=== PATIENT | male | born 1940 | race Caucasian/White ===

== ENCOUNTER 2016-10-14 05:47 | Emergency (ER) | payer OTHER ==
[~2016-10-14 05:47] MED LIST: AMBIEN5 MG PO; METFORMIN HCL500 MG PO; METOPROLOL TART25 MG PO; PRAVACHOL40 MG PO; ZESTRIL2.5 MG PO
--- NOTE | 2016-10-14 07:32 | DIAGNOSTIC IMAGING REPORT ---
PROCEDURE: CT CERVICAL SPINE W/O CONTRAST CLINICAL INDICATION: TRAUMA/INJURY TECHNIQUE: Noncontrast axial images with sagittal and coronal reformations. COMPARISON: There is no fracture. Moderate bilateral foraminal stenosis from C3-4 to see 71. FINDINGS: There is 2 mm C2-3 anterolisthesis and 2 mm C3-4 retrolisthesis. Severe degenerative changes with multilevel disc space narrowing and spur formation with moderate bilateral foraminal stenosis from C3-4 to C6-7. No spinal stenosis. Severe bilateral carotid bifurcation atherosclerosis. IMPRESSION: 1. No acute change 2. Severe multilevel degenerative changes 3. Results discussed with Dr. Santos All CT scans at this facility use dose modulation, iterative reconstruction, and/or weight-based dosing when appropriate to reduce radiation dose to as low as reasonably achievable.
--- NOTE | 2016-10-14 07:56 | DIAGNOSTIC IMAGING REPORT ---
PROCEDURE: CT HEAD WITHOUT CONTRAST INDICATION: TRAUMA/INJURY TECHNIQUE: Noncontrast axial images with sagittal and coronal reformations. COMPARISON: None. FINDINGS: Mild cortical atrophy. Ventricular system, and brain parenchyma are normal. No evidence of acute intracranial process. Visualized mastoids and sinuses are clear. IMPRESSION: 1. Negative non-enhanced head CT. 2. Findings discussed with chaparro Santos at 07:32 a.m.[facility] Time
--- NOTE | 2016-10-14 07:56 | DIAGNOSTIC IMAGING REPORT ---
PROCEDURE: CT HEAD WITHOUT CONTRAST INDICATION: TRAUMA/INJURY TECHNIQUE: Noncontrast axial images with sagittal and coronal reformations. COMPARISON: None. FINDINGS: Mild cortical atrophy. Ventricular system, and brain parenchyma are normal. No evidence of acute intracranial process. Visualized mastoids and sinuses are clear. IMPRESSION: 1. Negative non-enhanced head CT. 2. Findings discussed with chaparro Santos at 07:32 a.m.[facility] Time
--- NOTE | 2016-10-14 09:21 | ED CLINICAL REPORT ---
Clinical Report - Physicians/Mid Levels [facility] [address] [address] 10/14/2016 5:49 Patient: JARROD FRENCH Time Seen: 0555. Arrived- By ambulance. Historian- patient. HISTORY OF PRESENT ILLNESS Chief Complaint: FALL. Location of injuries- head and neck. The injury occurred just prior to arrival. Occurred at home. Fell. He experienced syncope. The patient complains of moderate pain. The patient sustained a blow to the head and complains of neck pain. No loss of consciousness or seizure. Not dazed. (amnesia of the event. Patient is not sure if he had lost consciousness.). REVIEW OF SYSTEMS All systems otherwise negative, except as recorded above. PAST HISTORY See nurses notes. Tetanus immunization status is up-to-date. SOCIAL HISTORY Never smoker. No alcohol use or drug use. No recent travel. Is a local resident. ADDITIONAL NOTES The nursing notes have been reviewed. PHYSICAL EXAM Vital Signs: 10/14/2016 05:53 BP: 121/70. HR: 88. RR: 18. O2 saturation: 97%. Temp: 98.1 F. Pain level now: 0/10. Blood pressure normal. Oxygen saturation normal. Head: Head non-tender. No swelling of head. No Mccord's sign or raccoon eyes. Eyes: Pupils equal, round and reactive to light. Pupillary exam: Right pupil 3mm, round and reactive to light directly and consensually and with accommodation. Left pupil: 3mm, round and reactive to light directly and consensually and with accommodation. EOM intact. Neck: Decrease in ROM. Pain in the neck upon movement. (ilateral lower paraspinal posterior muscle tenderness and spasm. No midline tenderness. No crepitus. No step-offs.). CVS: Heart sounds normal. Pulses normal. Respiratory: Breath sounds normal. Chest nontender. Abdomen: No visible injury. Soft and nontender. Bowel sounds normal. No mass. Back: No tenderness. ROM normal. Skin: Skin intact. Skin warm and dry. Normal skin color. Extremities: Normal inspection. Pelvis stable. Extremities atraumatic. Neuro: Keeley Coma Scale: 15- eyes open spontaneously (4); best verbal response- oriented x 3 (5); best motor response- obeys commands (6). Oriented X 3. No motor deficit. No sensory deficit. LABS, X-RAYS, AND EKG EKG: No acute process. No acute ischemia. Normal sinus rhythm. Occasional narrow-complex and atrial ectopic beats. Normal P waves. Normal IMANI. Normal QRS complex. Normal axis. Normal ST and T waves, QT and QTc. normal sinus with premature atrial complexes. The study has been interpreted contemporaneously. The study has been independently viewed by me. The EKG appears to be a good tracing. I agree with and confirm the computer reading of the EKG. CT C-Spine: (PROCEDURE: CT CERVICAL SPINE W/O CONTRAST CLINICAL INDICATION: TRAUMA/INJURY TECHNIQUE: Noncontrast axial images with sagittal and coronal reformations. COMPARISON: There is no fracture. Moderate bilateral foraminal stenosis from C3-4 to see 71. FINDINGS: There is 2 mm C2-3 anterolisthesis and 2 mm C3-4 retrolisthesis. Severe degenerative changes with multilevel disc space narrowing and spur formation with moderate bilateral foraminal stenosis from C3-4 to C6-7. No spinal stenosis. Severe bilateral carotid bifurcation atherosclerosis. IMPRESSION: 1. No acute change 2. Severe multilevel degenerative changes). The study was independently viewed by me and interpreted by the radiologist. The study was discussed with the radiologist (via phone and PACs). CT Head: (PROCEDURE: CT HEAD WITHOUT CONTRAST INDICATION: TRAUMA/INJURY TECHNIQUE: Noncontrast axial images with sagittal and coronal reformations. COMPARISON: None. FINDINGS: Mild cortical atrophy. Ventricular system, and brain parenchyma are normal. No evidence of acute intracranial process. Visualized mastoids and sinuses are clear. IMPRESSION: 1. Negative non-enhanced head CT.). The study was independently viewed by me and interpreted by the radiologist. The study was discussed with the radiologist (via phone and fax). Laboratory Tests: UA-Culture if indicated: (MARIKA: 10/14/2016 08:40) ( MsgRcvd 10/14/2016 09:05) Final results Test Result Flag Units (Reference) URINE COLOR YELLOW URINE APPEARANCE CLEAR URINE GLUCOSE TRACE (NEGATIVE) URINE BILIRUBIN NEGATIVE (NEGATIVE) URINE KETONE 1+ (NEGATIVE) URINE SPECIFIC GRAVITY 1.020 (1.010-1.030) URINE PH 6.0 (5.0-8.0) URINE PROTEIN NEGATIVE (NEGATIVE) URINE UROBILINOGEN 0.2 EU/dL (0.2-1.0) URINE NITRITE NEGATIVE (NEGATIVE) URINE BLOOD NEGATIVE (NEGATIVE) URINE LEUK ESTERASE NEGATIVE (NEGATIVE) URINE RBC RARE rbc/hpf (0-1) URINE WBC NONE SEEN wbc/hpf (0-1) URINE EPITHELIAL CELLS 1-3 EPI/hpf (0-5) URINE BACTERIA TRACE (<1+) (NONE SEEN) URINE COMMENT CULT NOT INDICATED 1-3 HYALINE CASTURINE CULTURES ARE SET-UP BASED ON THE FOLLOWING CRITERIA:POSITIVE NITRITEPOSITIVE LEUKOCYTE ESTERASEGREATER THAN 10 WHITE BLOOD CELLSMODERATE (2+) OR GREATER BACTERIA CBC w Diff: (MARIKA: 10/14/2016 06:21) ( [facility] 10/14/2016 06:29) Final results Test Result Flag Units (Reference) WHITE BLOOD COUNT 10.1 K/uL (4.5-11.5) RED BLOOD COUNT 3.28 L M/uL (4.50-5.90) HEMOGLOBIN 10.8 L gm/dL (13.5-17.5) HEMATOCRIT 32.3 L % (41.0-53.0) MEAN CELL VOLUME 99 fL (80-100) MEAN CORPUSCULAR HGB 33 pg (26-34) MEAN CORPUSCULAR HGB CONC 33 g/dL (31-37) RED CELL DISTRIBUTION WIDTH 13.2 % (11.6-14.8) PLATELET COUNT 215 K/uL (150-400) NEUTROPHIL % 79.8 H % (50-75) LYMPH % 11.7 L % (25-40) MONO % 7.6 % (3-14) EOSINOPHIL % 0.7 % (0-4) BASOPHIL % 0.2 % (0-2) PT with INR: (MARIKA: 10/14/2016 06:21) ( [facility] 10/14/2016 06:38) Final results Test Result Flag Units (Reference) INR 1.1 (0.8-1.2) Low Intensity Therapy: INR 1.5-2.0 PT range 18.5-23.1Mod.Intensity Therapy: INR 2.0-3.0 PT range 23.1-31.5High Intensity Therapy: INR 2.5-3.5 PT range 27.4-35.5High Intensity Therapy 2: INR 3.0-4.0 PT range 31.5-39.3 APTT 25 SECONDS (24-34) Troponin-I: (MARIKA: 10/14/2016 08:38) ( [facility]14[facility]:09) Final results Test Result Flag Units (Reference) TROPONIN I <0.05 ng/mL (0.00-1.5) TROPONIN REFERENCE RANGE:<0.1 NEGATIVE0.1-1.5 INDETERMINANT>1.5 POSITIVE CMP: (MARIKA: 10/14/2016 06:21) ( [facility] 10/14/2016 06:45) Final results Test Result Flag Units (Reference) GLUCOSE 177 H mg/dL (70-110) BUN 53 H mg/dL (7-18) CREATININE 1.6 H mg/dL (0.6-1.3) Estimated GFR 45.13 mL/min Estimated GFR- 54.70 mL/min Note: Persistent reduction over 3 months in eGFR<60 mL/min/1.73 m2 defines CKD. Patients with eGFR values>=60 mL/min/1.73 m2 may also have CKD if evidence ofpersistent proteinuria. Additional information may be foundat www.kidney.org. SODIUM 139 mmol/L (136-145) POTASSIUM 4.3 mmol/L (3.5-5.1) CHLORIDE 105 mmol/L (98-107) CARBON DIOXIDE 21 mmol/L (21-32) CALCIUM 8.5 mg/dL (8.5-10.1) TOTAL PROTEIN 5.7 L g/dL (6.4-8.2) ALBUMIN 3.0 L g/dL (3.3-5.0) BILIRUBIN, TOTAL 0.4 mg/dL (0.0-1.0) ALKALINE PHOSPHATASE 29 L U/L (46-116) AST (SGOT) 23 U/L (15-37) ALT (SGPT) 43 U/L (12-78) TROPONIN I <0.05 ng/mL (0.00-1.5) TROPONIN REFERENCE RANGE:<0.1 NEGATIVE0.1-1.5 INDETERMINANT>1.5 POSITIVE . PROGRESS AND PROCEDURES Course of Care: the patient is a 75-year-old male presenting for evaluation of fall. Unknown loss of consciousness. Patient will be evaluated for syncope as well as any significant injury to the head or neck. CT scan has been ordered. Pain medication is also been ordered. Workup is pending at this time. Patient's CT scan of the head and neck are noted for the findings above. EKGs also noted to have no acute abnormalities which would explain his syncopal event. Currently the patient's urinalysis is pending. Patient's second troponin will also need to be drawn at 8:21. patient with fall in bathroom. workup for possible causes negative. EKG unremarkable. Workup negative for acute findings. Mild anemia. Patient encouraged to take iron supplement. Patient pain controlled in the ED. Patient without other concerns. Ambulatory without assistance at time of discharge. Discussed with patient his work up in the ed including diagnosis, home care, follow up, and return precautions. All questions answered patient expressed understanding of these instructions an was agreeable to them. Disposition: Discharged. Condition: good. CLINICAL IMPRESSION 10/14/2016 08:27 BP: 101/66. HR: 86. RR: 22. O2 saturation: 99%. Blood pressure normal. Oxygen saturation normal. Acute cervical strain (acute). Acute anemia. Fall (acute). Minor closed head injury. Unknown whether a loss of consciousness occurred. INSTRUCTIONS (please take a iron supplement that can be found over the counter. follow package instructions.). Warnings: SEDATIVE MEDICATION: You were given sedative medication during your visit. Do not drive or operate dangerous machinery. Your Current Medications: CONTINUE TAKING THE FOLLOWING MEDICATIONS: MetFORMIN HCl Oral : 500 mg 2x a day. Metoprolol Tartrate Oral : 50 mg BID. Pravastatin Sodium Oral : 40 mg daily. Zolpidem Tartrate Oral : 10 mg at bedtime. Prescription Medications: Flexeril 10 mg: take 1 orally every 8 hours for 10 days as needed for muscle spasm or pain. Dispense twenty (20). No refills. Substitution is permissible. Follow-up: Return to the emergency department as needed. Follow up with your doctor in three days. Reason for referral: recheck today's concerns. Summary of care provided to patient via paper. Screening today revealed the patient's blood pressure to be in the normal range. The patient should follow up with a primary care provider for blood pressure management. Understanding of the discharge instructions verbalized by patient. (Electronically signed by Eze Santos Dr. 10/14/2016 21:08) Addenda for JARROD FRENCH VisitID: [id number] Date: 10/14/2016 10/14/2016 8:47 Note is been started by myself. Patient signed over to the oncoming doctor at the change of shift (Electronically signed by Eze Santos Dr. - 10/14/2016 8:47)
--- NOTE | 2016-10-14 09:21 | ED ORDER SUMMARY ---
..... Patient: JARROD FRENCH OrderSheet [facility] VisitID: [id number] [place] [address] 75y, M Registration Date/Time: 10/14/2016 ORDER SHEET Weight: 79.3 kg (stated) Allergies: No Known Drug Allergy GENERAL ORDERS: CT Head wo Cont Urgent (06:02 10/14/2016 Gina Estrada) (Ack 6:05 OSnell) (7:16 PWeiler ER Tech1) CT Cervical Spine wo Cont Urgent (06:02 10/14/2016 Gina Estrada) (Ack 6:05 OSnell) (7:16 PWeiler ER Tech1) CBC w Diff Urgent (06:02 10/14/2016 Gina Estrada) (Ack 6:05 Antionette) (6:24 JSanders R.N.) CMP Urgent (06:02 10/14/2016 Gina Estrada) (Ack 6:05 OSnell) (6:24 JSanders R.N.) PT with INR Urgent (06:02 10/14/2016 Gina Estrada) (Ack 6:05 OSnell) (6:24 JSanders R.N.) UA-Culture if indicated Urgent (06:02 10/14/2016 Gina Estrada) (Ack 6:04 Antionette) (9:06 Jolly) PTT Urgent (06:02 10/14/2016 Gina Estrada) (Ack 6:04 OSnell) (6:24 JSanders R.N.) Troponin-I Urgent (06:02 10/14/2016 Gina Estrada) (Ack 6:05 OSkvng) (6:24 JSanders R.N.) Regulatory Affairs Analyst (Continuous) (06:11 10/14/2016 MELINDAanders R.N. per protocol) (6:11 JSanders R.N.) EKG - ER Stat (06:46 10/14/2016 Gina Estrada) (Ack 6:52 FABnell) (7:12 OHernandez) Troponin-I (redraw at 08:21) Urgent (07:49 10/14/2016 Gina Estrada) (Ack 7:59 PWeiler ER Tech1) (8:52 ALawrence ER Tech1) MEDICATION ORDERS: IV FLUIDS: Morphine IV 4 mg (HIGH ALERT MEDICATION, NOW) (06:12 10/14/2016 Gina Estrada) (6:22 JSanders R.N.) Morphine IV 8 mg (HIGH ALERT MEDICATION, NOW) (07:55 10/14/2016 Gina Estrada) (8:19 LWhalen R.N.) IV NS : initial bolus 1000 mL (1000 mL/hr), then none - for X1 (NOW) (08:29 10/14/2016 Gina Estrada) (8:31 LWhalen R.N.) Ativan IV 1 mg (HIGH ALERT MEDICATION, NOW) (09:13 10/14/2016 Gina Estrada) (9:17 LWhalen R.N.) ORDER SHEET NOTES: [Electronically signed by Kathy Gallegos R.N. (17:58 10/14/2016)] [Electronically signed by Eze Santos Dr. (21:08 10/14/2016)] [Electronically locked/signed by Kathy Gallegos R.N. (17:58 10/14/2016)]
--- NOTE | 2016-10-14 09:21 | ED NURSING NOTES ---
Clinical Report - Nurses [facility] [address] [place] [address] 10/14/2016 5:49 Patient: JARROD FRENCH TRIAGE 05:53 10/14/16. BP: 121/70 (regular adult cuff) taken on the right arm. HR: 88. RR: 18. O2 saturation: 97% on room air. Temp: 98.1 F (oral). Pain level now: 0/10. --06:03 Marysol Hawthorne R.N. late entry - 05:53 10/14/16. --06:30 Marysol Hawthorne R.N. Triage time 05:Oct 14 2016. Acuity: LEVEL 3. Chief Complaint: FALL while standing (Patient was in bathroom and woke up in the bathtub, he said his neighbor called because she heard the loud noise of him falling). 06:03 10/14/16. SEPSIS SCREEN: Sepsis Screen. Negative (no infection suspected/documented). NATASHA COMA SCORE: Kaufman Coma Scale: 15- eyes open spontaneously (4); best verbal response- oriented x 4 (5); best motor response- obeys commands (6). --06:03 Marysol Hawthorne R.N. Weight: 79.3 kg stated. Height/Length: 71 inches Per Patient. BMI: 24.4. --06:01 Marysol Hawthorne R.N. Medications MetFORMIN HCl Oral 500 mg, 2x a day. Metoprolol Tartrate Oral 50 mg, BID. Pravastatin Sodium Oral 40 mg, daily. Zolpidem Tartrate Oral 10 mg, at bedtime. --05:56 Marysol Hawthorne R.N. Allergies No Known Drug Allergy. --05:56 Marysol Hawthorne R.N. History Arrived by EMS. Historian: patient. This occurred just prior to arrival. He has had neck pain. Treatment [employer]IP: None. PAST MEDICAL HX: Hypertension. SOCIAL HX: Smoker- current status unknown. Occasional alcohol use; consumes liquor weekly. 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 No infectious disease exposure. ABUSE ASSESSMENT: No report of abuse. SELF HARM ASSESSMENT: A self harm assessment was performed. The patient answered "no" to the question "Do you have thoughts of harming or killing yourself?" and "Have you recently had thoughts about harming or killing others?". --06:03 Marysol Hawthorne R.N. Treatment [employer]IP: EMS treatment [employer] verbally communicated. Finger stick glucose performed (215). BP: 102/70. --06:30 Marysol Hawthorne R.N. PROBLEMS: Hyperlipidemia. Insomnia. Hypotension. Diabetes Mellitus. --05:57 Marysol Hawthorne R.N. ADDITIONAL SURGERIES: Hernia Repair. --05:57 Marysol Hawthorne R.N. Interventions ID band on patient. To treatment room. --06:03 Marysol Hawthorne R.N. PHYSICAL ASSESSMENT 06:03 10/14/16. To room via stretcher. Patient gowned. GENERAL / NEURO / PSYCH: Alert. Oriented X 4. Appears in no acute distress. HEENT: Pupils equal, round and reactive to light. Head non-tender. RESPIRATORY: Respirations not labored. Chest nontender. Breath sounds within normal limits. CVS: Normal heart rate and rhythm. Pulses within normal limits. Capillary refill less than 2 seconds. GI / : Abdomen soft and nontender. EXTREMITIES: Extremities exhibit normal ROM. Neuro-vascular status intact to the extremity. SKIN: Skin intact. Skin is warm and dry. --06:04 Marysol Hawthorne R.N. NURSING PROGRESS NOTES 06:04 10/14/16. The plan of care for this patient has been created. Patient gowned. Reassurance given. Two patient identifiers checked. Call light placed in reach. Side rails up x 2. Bed placed in lowest position. Brakes of bed on. Patient ready for evaluation- chart flagged and ED physician notified. --06:04 Marysol Hawthorne R.N. 06:12 10/14/16. BP: 122/61 (regular adult cuff) taken on the left arm. HR: 95. RR: 18. O2 saturation: 95% on room air. Pain level now: 10/24. --06:12 Marysol Hawthorne R.N. 06:11 10/14/2016 Site #1 started prior to arrival by EMS via IV in the left forearm with an 22g angiocath, with aseptic technique and good blood return. --06:21 Marysol Hawthorne R.N. 06:12 10/14/16. --06:12 Marysol Hawthorne R.N. 06:22 10/14/2016 Morphine IVP 4 mg given over 2 minute(s) via site #1. Allergies verified, confirmed 5 rights and sedative warning given to the patient. IV patency established. IV site checked: no pain, redness, or swelling. IV flushed thoroughly pre- and post-medication administration. IVP given by RN. --06:22 Marysol Hawthorne R.N. 06:22 10/14/16. BP: 132/75 (regular adult cuff) taken on the left arm, while sitting. HR: 90. RR: 18. O2 saturation: 98% on room air. --06:23 Marysol Hawthorne R.N. Hemoccult test negative. repairer controller tester check passed. (POC test reference range: negative). --06:25 Marysol Hawthorne R.N. Cardiac rhythm: normal sinus rhythm. --06:26 Marysol Hawthorne R.N. 06:32 10/14/16. ( Patient given blanket, lights dimmed for patient comfort). --06:32 Marysol Hawthorne R.N. 06:40 10/14/16. BP: 100/57. HR: 88. RR: 20. O2 saturation: 97% on room air. Pain level now: 7/10. Additional comments: in neck. --06:41 Marysol Hawthorne R.N. 06:41 10/14/16. --06:41 Marysol Hawthorne R.N. Patient transported to CT by stretcher with tech. (06:46 Oct 14 2016). --06:47 Marysol Hawthorne R.N. Patient returned from radiology by stretcher with tech. (07:10 Oct 14 2016). --07:10 Marysol Hawthorne R.N. EKG time: (0708). EKG was ordered, performed by a tech and shown to the ED physician. --07:13 Missy Cali Care transferred and report given (Kathy, RN). --07:18 Marysol Hawthorne R.N. 08:19 10/14/2016 Morphine IVP 8 mg given over 4 minute(s) via site #1. Allergies verified, confirmed 5 rights and sedative warning given to the patient. IV patency established. IV site checked: no pain, redness, or swelling. IV flushed thoroughly pre- and post-medication administration. --08:19 Kathy Gallegos R.N. 08:27 10/14/16. BP: 101/66. HR: 86. RR: 22. O2 saturation: 99%. Pain level now 10/24. --08:28 Kathy Gallegos R.N. 08:31 10/14/2016 Started bag #1 1000 mL IV Fluids IV NS (Saline); at 1000 mL/hr over 1 hour(s) via site #1 via IV pump. Allergies verified and confirmed 5 rights. IV patency established. IV site checked: no pain, redness, or swelling. IV flushed thoroughly pre- and post-medication administration. --08:31 Kathy Gallegos R.N. 09:17 10/14/2016 Ativan (LORazepam) IVP 1 mg given over 2 minute(s) via site #1. Allergies verified, confirmed 5 rights and sedative warning given to the patient. IV patency established. IV site checked: no pain, redness, or swelling. IV flushed thoroughly pre- and post-medication administration. --09:17 Kathy Gallegos R.N. 09:30 10/14/2016 IV Fluids IV NS Discontinued: bag #1. Total amount infused: 1000 mL. IV patency established. IV site checked: no pain, redness, or swelling. IV flushed thoroughly. --17:57 Kathy Gallegos R.N. DISPOSITION / DISCHARGE Departure time: :Oct 14 2016. Condition at departure: improved. No learning barriers present. Discharge instructions provided and reviewed with the patient. Reviewed warnings. Reviewed medication(s). Treatments reviewed. Reviewed referrals. Verbalized understanding. Written instructions provided in [place]. The patient was discharged home and accompanied by family. He left the Emergency Department ambulatory and via private vehicle. Family member driving. --09:59 Kathy Gallegos R.N. 09:57 10/14/16. BP: 143/84. HR: 87. RR: 18. O2 saturation: 98%. Temp: 98.4 F. Pain level now 5/10. --09:59 Kathy Gallegos R.N. 09:34 10/14/2016 Site #1 removed upon discharge. Catheter intact. Pressure dressing applied. --09:59 Kathy Gallegos R.N. Locked/Released at 10/14/2016 17:58 by Kathy Gallegos R.N.
--- NOTE | 2016-10-14 09:21 | ED ORDER SUMMARY ---
..... Patient: JARROD FRENCH OrderSheet [facility] VisitID: [id number] [place] [address] 75y, M Registration Date/Time: 10/14/2016 ORDER SHEET Weight: 79.3 kg (stated) Allergies: No Known Drug Allergy GENERAL ORDERS: CT Head wo Cont Urgent (06:02 10/14/2016 Gina Estrada) (Ack 6:05 OSnell) (7:16 PWeiler ER Tech1) CT Cervical Spine wo Cont Urgent (06:02 10/14/2016 Gina Estrada) (Ack 6:05 OSnell) (7:16 PWeiler ER Tech1) CBC w Diff Urgent (06:02 10/14/2016 Gina Estrada) (Ack 6:05 Antionette) (6:24 JSanders R.N.) CMP Urgent (06:02 10/14/2016 Gina Estrada) (Ack 6:05 OSnell) (6:24 JSanders R.N.) PT with INR Urgent (06:02 10/14/2016 Gina Estrada) (Ack 6:05 OSnell) (6:24 JSanders R.N.) UA-Culture if indicated Urgent (06:02 10/14/2016 Gina Estrada) (Ack 6:04 Antionette) (9:06 Jolly) PTT Urgent (06:02 10/14/2016 Gina Estrada) (Ack 6:04 OSnell) (6:24 JSanders R.N.) Troponin-I Urgent (06:02 10/14/2016 Gina Estrada) (Ack 6:05 OSkvng) (6:24 JSanders R.N.) Finishing Powder Press Operator (Continuous) (06:11 10/14/2016 MELINDAanders R.N. per protocol) (6:11 JSanders R.N.) EKG - ER Stat (06:46 10/14/2016 Gina Estrada) (Ack 6:52 FABnell) (7:12 OHernandez) Troponin-I (redraw at 08:21) Urgent (07:49 10/14/2016 Gina Estrada) (Ack 7:59 PWeiler ER Tech1) (8:52 ALawrence ER Tech1) MEDICATION ORDERS: IV FLUIDS: Morphine IV 4 mg (HIGH ALERT MEDICATION, NOW) (06:12 10/14/2016 Gina Estrada) (6:22 JSanders R.N.) Morphine IV 8 mg (HIGH ALERT MEDICATION, NOW) (07:55 10/14/2016 Gina Estrada) (8:19 LWhalen R.N.) IV NS : initial bolus 1000 mL (1000 mL/hr), then none - for X1 (NOW) (08:29 10/14/2016 Gina Estrada) (8:31 LWhalen R.N.) Ativan IV 1 mg (HIGH ALERT MEDICATION, NOW) (09:13 10/14/2016 Gina Estrada) (9:17 LWhalen R.N.) ORDER SHEET NOTES: [Electronically signed by Kathy Gallegos R.N. (17:58 10/14/2016)] [Electronically signed by Eze Santos Dr. (21:08 10/14/2016)] [Electronically locked/signed by Kathy Gallegos R.N. (17:58 10/14/2016)]
--- NOTE | 2016-10-14 09:21 | ED NURSING NOTES ---
Clinical Report - Nurses [facility] [address] [place] [address] 10/14/2016 5:49 Patient: JARROD FRENCH TRIAGE 05:53 10/14/16. BP: 121/70 (regular adult cuff) taken on the right arm. HR: 88. RR: 18. O2 saturation: 97% on room air. Temp: 98.1 F (oral). Pain level now: 0/10. --06:03 Marysol Hawthorne R.N. late entry - 05:53 10/14/16. --06:30 Marysol Hawthorne R.N. Triage time 05:Oct 14 2016. Acuity: LEVEL 3. Chief Complaint: FALL while standing (Patient was in bathroom and woke up in the bathtub, he said his neighbor called because she heard the loud noise of him falling). 06:03 10/14/16. SEPSIS SCREEN: Sepsis Screen. Negative (no infection suspected/documented). NATASHA COMA SCORE: [place] Coma Scale: 15- eyes open spontaneously (4); best verbal response- oriented x 4 (5); best motor response- obeys commands (6). --06:03 Marysol Hawthorne R.N. Weight: 79.3 kg stated. Height/Length: 71 inches Per Patient. BMI: 24.4. --06:01 Marysol Hawthorne R.N. Medications MetFORMIN HCl Oral 500 mg, 2x a day. Metoprolol Tartrate Oral 50 mg, BID. Pravastatin Sodium Oral 40 mg, daily. Zolpidem Tartrate Oral 10 mg, at bedtime. --05:56 Marysol Hawthorne R.N. Allergies No Known Drug Allergy. --05:56 Marysol Hawthorne R.N. History Arrived by EMS. Historian: patient. This occurred just prior to arrival. He has had neck pain. 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 PAST MEDICAL HX: Hypertension. SOCIAL HX: Smoker- current status unknown. Occasional alcohol use; consumes liquor weekly. 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 No infectious disease exposure. ABUSE ASSESSMENT: No report of abuse. SELF HARM ASSESSMENT: A self harm assessment was performed. The patient answered "no" to the question "Do you have thoughts of harming or killing yourself?" and "Have you recently had thoughts about harming or killing others?". --06:03 Marysol Hawthorne R.N. 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 Finger stick glucose performed (215). BP: 102/70. --06:30 Marysol Hawthorne R.N. PROBLEMS: Hyperlipidemia. Insomnia. Hypotension. Diabetes Mellitus. --05:57 Marysol Hawthorne R.N. ADDITIONAL SURGERIES: Hernia Repair. --05:57 Marysol Hawthorne R.N. Interventions ID band on patient. To treatment room. --06:03 Marysol Hawthorne R.N. PHYSICAL ASSESSMENT 06:03 10/14/16. To room via stretcher. Patient gowned. GENERAL / NEURO / PSYCH: Alert. Oriented X 4. Appears in no acute distress. HEENT: Pupils equal, round and reactive to light. Head non-tender. RESPIRATORY: Respirations not labored. Chest nontender. Breath sounds within normal limits. CVS: Normal heart rate and rhythm. Pulses within normal limits. Capillary refill less than 2 seconds. GI / : Abdomen soft and nontender. EXTREMITIES: Extremities exhibit normal ROM. Neuro-vascular status intact to the extremity. SKIN: Skin intact. Skin is warm and dry. --06:04 Marysol Hawthorne R.N. NURSING PROGRESS NOTES 06:04 10/14/16. The plan of care for this patient has been created. Patient gowned. Reassurance given. Two patient identifiers checked. Call light placed in reach. Side rails up x 2. Bed placed in lowest position. Brakes of bed on. Patient ready for evaluation- chart flagged and ED physician notified. --06:04 Marysol Hawthorne R.N. 06:12 10/14/16. BP: 122/61 (regular adult cuff) taken on the left arm. HR: 95. RR: 18. O2 saturation: 95% on room air. Pain level now: 10/24. --06:12 Marysol Hawthorne R.N. 06:11 10/14/2016 Site #1 started prior to arrival by EMS via IV in the left forearm with an 22g angiocath, with aseptic technique and good blood return. --06:21 Marysol Hawthorne R.N. 06:12 10/14/16. --06:12 Marysol Hawthorne R.N. 06:22 10/14/2016 Morphine IVP 4 mg given over 2 minute(s) via site #1. Allergies verified, confirmed 5 rights and sedative warning given to the patient. IV patency established. IV site checked: no pain, redness, or swelling. IV flushed thoroughly pre- and post-medication administration. IVP given by RN. --06:22 Marysol Hawthorne R.N. 06:22 10/14/16. BP: 132/75 (regular adult cuff) taken on the left arm, while sitting. HR: 90. RR: 18. O2 saturation: 98% on room air. --06:23 Marysol Hawthorne R.N. Hemoccult test negative. pressure control supervisor check passed. (POC test reference range: negative). --06:25 Marysol Hawthorne R.N. Cardiac rhythm: normal sinus rhythm. --06:26 Marysol Hawthorne R.N. 06:32 10/14/16. ( Patient given blanket, lights dimmed for patient comfort). --06:32 Marysol Hawthorne R.N. 06:40 10/14/16. BP: 100/57. HR: 88. RR: 20. O2 saturation: 97% on room air. Pain level now: 7/10. Additional comments: in neck. --06:41 Marysol Hawthorne R.N. 06:41 10/14/16. --06:41 Marysol Hawthorne R.N. Patient transported to CT by stretcher with tech. (06:46 Oct 14 2016). --06:47 Marysol Hawthorne R.N. Patient returned from radiology by stretcher with tech. (07:10 Oct 14 2016). --07:10 Marysol Hawthorne R.N. EKG time: (0708). EKG was ordered, performed by a tech and shown to the ED physician. --07:13 Missy Cali Care transferred and report given (Kathy, RN). --07:18 Marysol Hawthorne R.N. 08:19 10/14/2016 Morphine IVP 8 mg given over 4 minute(s) via site #1. Allergies verified, confirmed 5 rights and sedative warning given to the patient. IV patency established. IV site checked: no pain, redness, or swelling. IV flushed thoroughly pre- and post-medication administration. --08:19 Kathy Gallegos R.N. 08:27 10/14/16. BP: 101/66. HR: 86. RR: 22. O2 saturation: 99%. Pain level now 10/24. --08:28 Kathy Gallegos R.N. 08:31 10/14/2016 Started bag #1 1000 mL IV Fluids IV NS (Saline); at 1000 mL/hr over 1 hour(s) via site #1 via IV pump. Allergies verified and confirmed 5 rights. IV patency established. IV site checked: no pain, redness, or swelling. IV flushed thoroughly pre- and post-medication administration. --08:31 Kathy Gallegos R.N. 09:17 10/14/2016 Ativan (LORazepam) IVP 1 mg given over 2 minute(s) via site #1. Allergies verified, confirmed 5 rights and sedative warning given to the patient. IV patency established. IV site checked: no pain, redness, or swelling. IV flushed thoroughly pre- and post-medication administration. --09:17 Kathy Gallegos R.N. 09:30 10/14/2016 IV Fluids IV NS Discontinued: bag #1. Total amount infused: 1000 mL. IV patency established. IV site checked: no pain, redness, or swelling. IV flushed thoroughly. --17:57 Kathy Gallegos R.N. DISPOSITION / DISCHARGE Departure time: :Oct 14 2016. Condition at departure: improved. No learning barriers present. Discharge instructions provided and reviewed with the patient. Reviewed warnings. Reviewed medication(s). Treatments reviewed. Reviewed referrals. Verbalized understanding. Written instructions provided in [place]. The patient was discharged home and accompanied by family. He left the Emergency Department ambulatory and via private vehicle. Family member driving. --09:59 Kathy Gallegos R.N. 09:57 10/14/16. BP: 143/84. HR: 87. RR: 18. O2 saturation: 98%. Temp: 98.4 F. Pain level now 5/10. --09:59 Kathy Gallegos R.N. 09:34 10/14/2016 Site #1 removed upon discharge. Catheter intact. Pressure dressing applied. --09:59 Kathy Gallegos R.N. Locked/Released at 10/14/2016 17:58 by Kathy Gallegos R.N.
--- NOTE | 2016-10-14 21:09 | ED MAR SUMMARY ---
..... Medication Administration [facility] [address] [place] [address] Patient: JARROD FRENCH Visit ID: [id number] 75y, M Weight: 79.3 kg Height/Length: 71 in BMI: 24.4 ALLERGIES: No Known Drug Allergy Given 06:22 10/14/2016 Marysol Hawthorne R.N. Medication Administered: MORPHINE [IVP], Dose: 4 mg IVP over 2 minute(s), Site: #1 left forearm. Medication Ordered: Morphine IV 4 mg (HIGH ALERT MEDICATION, NOW). Given 08:19 10/14/2016 Kathy Gallegos R.N. Medication Administered: MORPHINE [IVP], Dose: 8 mg IVP over 4 minute(s), Site: #1 left forearm. Medication Ordered: Morphine IV 8 mg (HIGH ALERT MEDICATION, NOW). Start 08:31 10/14/2016 Kathy Gallegos R.N., Stop 09:30 10/14/2016 Kathy Gallegos R.N. Medication Administered: IV NS (SALINE), Dose: IV Fluids over 1 hour(s), Rate: 1000 mL/hr, Dispensed: 1000 mL bag, Site: #1 left forearm. Medication Ordered: IV NS : initial bolus 1000 mL (1000 mL/hr), then none - for X1 (NOW). Given 09:17 10/14/2016 Kathy Gallegos R.N. Medication Administered: ATIVAN [IVP] (LORAZEPAM), Dose: 1 mg IVP over 2 minute(s), Site: #1 left forearm. Medication Ordered: Ativan IV 1 mg (HIGH ALERT MEDICATION, NOW).
--- NOTE | 2016-10-14 21:09 | ED MED RECONCILIATION SUMMARY ---
Patient: JARROD FRENCH Medication Reconciliation Report [facility] VisitID: [id number] [address] [place] [address] 75y, M Registration Date/Time: 10/14/2016 Weight: 79.3 kg Height/Length: 71 in. BMI: 24.4 ALLERGIES: No Known Drug Allergy The patient's Home Medications are listed below: CONTINUE TAKING THE FOLLOWING MEDICATIONS: MetFORMIN HCl Oral 500 mg, 2x a day Metoprolol Tartrate Oral 50 mg, BID Pravastatin Sodium Oral 40 mg, daily Zolpidem Tartrate Oral 10 mg, at bedtime The source(s) of the original Home Medication information: Not obtained. The following Medications were given to the patient in the Emergency Department: Morphine [IVP] IVP 4 mg, administered: 10/14/2016 6:22:00 AM Morphine [IVP] IVP 8 mg, administered: 10/14/2016 8:19:00 AM IV NS IV Fluids bolus 0, then 1000 mL/hr, administered: 10/14/2016 8:31:00 AM Ativan [IVP] IVP 1 mg, administered: 10/14/2016 9:17:00 AM The following Medications were prescribed to the patient: Flexeril 10 mg: take 1 orally every 8 hours for 10 days as needed for muscle spasm or pain. Dispense twenty (20). No refills. Substitution is permissible. -- Eze Santos Dr.
--- NOTE | 2016-10-14 21:09 | ED MED RECONCILIATION SUMMARY ---
Patient: JARROD FRENCH Medication Reconciliation Report [facility] VisitID: [id number] [address] [place] [address] 75y, M Registration Date/Time: 10/14/2016 Weight: 79.3 kg Height/Length: 71 in. BMI: 24.4 ALLERGIES: No Known Drug Allergy The patient's Home Medications are listed below: CONTINUE TAKING THE FOLLOWING MEDICATIONS: MetFORMIN HCl Oral 500 mg, 2x a day Metoprolol Tartrate Oral 50 mg, BID Pravastatin Sodium Oral 40 mg, daily Zolpidem Tartrate Oral 10 mg, at bedtime The source(s) of the original Home Medication information: Not obtained. The following Medications were given to the patient in the Emergency Department: Morphine [IVP] IVP 4 mg, administered: 10/14/2016 6:22:00 AM Morphine [IVP] IVP 8 mg, administered: 10/14/2016 8:19:00 AM IV NS IV Fluids bolus 0, then 1000 mL/hr, administered: 10/14/2016 8:31:00 AM Ativan [IVP] IVP 1 mg, administered: 10/14/2016 9:17:00 AM The following Medications were prescribed to the patient: Flexeril 10 mg: take 1 orally every 8 hours for 10 days as needed for muscle spasm or pain. Dispense twenty (20). No refills. Substitution is permissible. -- Eze Santos Dr.
--- NOTE | 2016-10-14 21:09 | ED DISCHARGE INSTRUCTIONS ---
Patient: JARROD FRENCH General Instructions [facility] VisitID: [id number] [place] [address] 75y, M Registration Date/Time: 10/14/2016 10/14/2016 08:27 BP: 101/66. HR: 86. RR: 22. O2 saturation: 99%. Blood pressure normal. Oxygen saturation normal. Acute cervical strain (acute). Acute anemia. Fall (acute). Minor closed head injury. Unknown whether a loss of consciousness occurred. INSTRUCTIONS (please take a iron supplement that can be found over the counter. follow package instructions.). Warnings: SEDATIVE MEDICATION: You were given sedative medication during your visit. Do not drive or operate dangerous machinery. Your Current Medications: CONTINUE TAKING THE FOLLOWING MEDICATIONS: MetFORMIN HCl Oral : 500 mg 2x a day. Metoprolol Tartrate Oral : 50 mg BID. Pravastatin Sodium Oral : 40 mg daily. Zolpidem Tartrate Oral : 10 mg at bedtime. Prescription Medications: Flexeril 10 mg: take 1 orally every 8 hours for 10 days as needed for muscle spasm or pain. Dispense twenty (20). No refills. Substitution is permissible. Follow-up: Return to the emergency department as needed. Follow up with your doctor in three days. Reason for referral: recheck today's concerns. Summary of care provided to patient via paper. Screening today revealed the patient's blood pressure to be in the normal range. The patient should follow up with a primary care provider for blood pressure management. Understanding of the discharge instructions verbalized by patient. ADDITIONAL INFORMATION Fall, Uncertain Cause You have had a fall today. but the cause of your fall is not certain. Falls can occur due to slipping, tripping or losing your balance. A fall can also occur from a fainting spell or seizure. Because the cause of your fall today is not certain, it is possible that a fainting spell or seizure was the cause. This means that it could happen again, without warning. If you fall again, without a cause, then you should return to this facility promptly to have further tests. Otherwise, follow up with your doctor as explained below. Home Care: 1) Rest today and resume your normal activities as soon as you are feeling back to normal. It is best to remain with someone who can check on you for the next 24 hours to watch for another episode of falling. 2) If you were injured during the fall, follow the advice from your doctor regarding care of your injury. 3) If you become light-headed or dizzy, lie down immediately or sit and lean forward with your head down. 4) As a precaution, do not drive a car or operate dangerous equipment, do not take a bath alone (use a shower instead) and do not swim alone until you see your doctor. A condition causing fainting or seizures must be ruled out before resuming these activities. 5)You may use acetaminophen (Tylenol) or ibuprofen (Motrin, Advil) to control pain, unless another pain medicine was prescribed. [ NOTE : If you have chronic liver or kidney disease or ever had a stomach ulcer or GI bleeding, talk with your doctor before using these medicines.] 6) Keep your appointments for any further testing that may have been scheduled for you. Follow Up: Unless, given other advice, call your doctor on the next office day to advise of your fall and to schedule an appointment. Get Prompt Medical Attention if any of the following occur: -- Another unexplained fall -- Dizziness, fainting or seizure -- Severe headache -- Chest pain or shortness of breath -- Palpitations (very rapid or very slow or irregular heart beat) -- Blood in vomit, stools (black or red color) -- Weakness of an arm or leg or one side of the face -- Difficulty with speech or vision Neck Sprain Or Strain A sudden force that causes turning or bending of the neck (such as in a car accident) can stretch or tear muscles (strain) and ligaments (sprain) and cause neck pain. Sometimes neck pain occurs after a simple awkward movement. In either case, muscle spasm is commonly present and contributes to the pain. Unless you had a forceful physical injury (for example, a car accident or fall), X-rays are usually not ordered for the initial evaluation of neck pain. If pain continues and dose not respond to medical treatment, X-rays and other tests may be performed at a later time. Home care The following guidelines will help you care for your injury at home: You may feel more soreness and spasm the first few days after the injury. Reduce your activity level until symptoms begin to improve. When lying down, use a comfortable pillow that supports the head and keeps the spine in a neutral position. The position of the head should not be tilted forward or backward. Use ice packs (ice in a plastic bag, wrapped in a towel) to treat acute pain. Apply for 20 minutes every 24 hours during the first two days. Then, begin local heat (hot shower, hot bath or heating pad) andmassageto reduce muscle spasm. Some patients feel best alternating hot and cold treatments, or just staying with one method only. Do what feels the best to you and gives the most relief. You may use acetaminophen or ibuprofen to control pain, unless another pain medicine was prescribed.If you have chronic liver or kidney disease or ever had a stomach ulcer or GI bleeding, talk with your doctor before using these medicines. Follow-up care Follow up with your physician or this facility if your symptoms do not show signs of improvement. Physical therapy may be needed. If you had X-rays today, they didnt show any broken bones, breaks, or fractures. Sometimes fractures dont show up on the first X-ray. Bruises and sprains can sometimes hurt as much as a fracture. These injuries can take time to heal completely. If your symptoms dont improve or they get worse, talk with your doctor. You may need a repeat X-ray. When to seek medical care Get prompt medical attention if any of the following occur: Pain becomes worse or spreads into your arms Weakness or numbness in one or both arms Anemia [Type Not Specified, Adult] Red blood cells carry oxygen to the tissues of the body. Anemia is a condition where the size or number of red blood cells in the body is reduced. Iron is needed to make red blood cells. The most common cause of anemia is iron deficiency. This may be due to: i) Blood loss (heavy menstrual periods or bleeding from the stomach or intestines); or, ii) Not eating enough iron-containing foods. Other causes of anemia include certain vitamin deficiencies, chronic kidney disease or certain other chronic illnesses. Anemia causes a feeling of being tired and run down. When anemia becomes severe, the skin becomes pale and there is shortness of breath with exertion. Headaches, dizziness, leg cramps with exertion, drowsiness and fatigue are other common symptoms. Home Care: If you are having symptoms of anemia listed above: -- Do not overexert yourself. -- Talk to your doctor before flying on an airplane or traveling to high altitudes. Follow Up with your doctor as advised by our staff. Additional blood testing may be required to determine the exact cause of your anemia. If testing was done on this visit, it may take several days to get all of the results. You may call this facility or follow up with your own doctor to get the results. Get Prompt Medical Attention if any of the following occur: -- Shortness of breath or chest pain -- Worsening of dizziness, fainting -- Vomiting blood or passing red or black-colored stool Concussion (No Wake-Up) A concussion happens when you hit your head with enough force to shake up the brain. This may cause you to lose consciousness be "knocked out" - but not always. Depending on how hard you hit your head, it will take from a few hours up to a few days to get better. Sometimes symptoms may last a few months or longer. This is called post-concussion syndrome. At first, you may have a headache, nausea, vomiting, or dizziness. You may also have problems concentrating or remembering things. This is normal. Symptoms should get better as the hours and days go by. Symptoms that get worse could be a sign of a more serious injury. This might be a bruise or bleeding in the brain. Thats why its important to watch for the warning signs listed below. Home care Follow these tips to help care for yourself at home: During the next day (24 hours) someone must stay with you to check for the signs below. If your face or scalp swells, apply an ice pack for 20 minutes every 1 to 2 hours. Do this until the swelling starts to go down. You can make an ice pack by putting ice cubes in a plastic bag and wrapping the bag in a towel. for 20 minutes every 1-2 hours until the swelling starts to go down. You may use acetaminophen to control pain, unless another pain medicine was prescribed. If you have chronic liver or kidney disease, talk with your doctor before using these medicines. Also talk with your doctor if you ever had a stomach ulcer or GI bleeding. For the next 24 hours: Dont drink alcohol or take sedatives or medicines that make you sleepy. Dont drive or operate machinery. Avoid doing anything strenuous. Dont lift or strain. Dont return to sports or any activity that could cause you to hit your head until all symptoms are gone and you have been cleared by your doctor. A second head injury before fully recovering from the first one can lead to serious brain injury. Follow-up care Follow up with your doctor in 1 week, or as directed. Note: A radiologist will review any X-rays or CT scans that were taken. You will be told of any new findings that may affect your care. When to seek medical care Get prompt medical attention if any of these occur: Repeated vomiting Headache or dizziness that is severe or gets worse Unusual drowsiness, or unable to wake up as usual Confusion or change in behavior or speech, or memory loss Blurred vision Convulsion (seizure) Swelling on the scalp or face that gets worse Redness, warmth, or pus from the swollen area Fluid draining from or bleeding from the nose or ears Cyclobenzaprine Hydrochloride Oral tablet What is this medicine? CYCLOBENZAPRINE (sye robertolaura ALEJANDRO perera preen) is a muscle relaxer. It is used to treat muscle pain, spasms, and stiffness. How should I use this medicine? Take this medicine by mouth with a glass of water. Follow the directions on the prescription label. If this medicine upsets your stomach, take it with food or milk. Take your medicine at regular intervals. Do not take it more often than directed. Talk to your substitute bus driver regarding the use of this medicine in children. Special care may be needed. What side effects may I notice from receiving this medicine? Side effects that you should report to your doctor or health behavioral health care manager as soon as possible: allergic reactions like skin rash, itching or hives, swelling of the face, lips, or tongue chest pain fast heartbeat hallucinations seizures vomiting Side effects that usually do not require medical attention (report to your doctor or health behavioral health care manager if they continue or are bothersome): headache What may interact with this medicine? Do not take this medicine with any of the following medications: cisapride droperidol flecainide grepafloxacin halofantrine levomethadyl MAOIs like Carbex, Eldepryl, Marplan, Nardil, and Parnate nilotinib pimozide probucol sertindole This medicine may also interact with the following medications: abarelix alcohol contrast dyes dolasetron guanethidine medicines for cancer medicines for depression, anxiety, or psychotic disturbances medicines to treat an irregular heartbeat medicines used for sleep or numbness during surgery or procedure methadone octreotide ondansetron palonosetron phenothiazines like chlorpromazine, mesoridazine, prochlorperazine, thioridazine some medicines for infection like alfuzosin, chloroquine, clarithromycin, levofloxacin, mefloquine, pentamidine, troleandomycin tramadol vardenafil What if I miss a dose? If you miss a dose, take it as soon as you can. If it is almost time for your next dose, take only that dose. Do not take double or extra doses. Where should I keep my medicine? Keep out of the reach of children. Store at room temperature between 15 and 30 degrees C (59 and 86 degrees F). Keep container tightly closed. Throw away any unused medicine after the expiration date. What should I tell my health care provider before I take this medicine? They need to know if you have any of these conditions: heart disease, irregular heartbeat, or previous heart attack liver disease thyroid problem an unusual or allergic reaction to cyclobenzaprine, tricyclic antidepressants, lactose, other medicines, foods, dyes, or preservatives or trying to get breast-feeding What should I watch for while using this medicine? Check with your doctor or health behavioral health care manager if your condition does not improve within 1 to 3 weeks. You may get drowsy or dizzy when you first start taking the medicine or change doses. Do not drive, use machinery, or do anything that may be dangerous until you know how the medicine affects you. Stand or sit up slowly. Your mouth may get dry. Drinking water, chewing sugarless gum, or sucking on hard candy may help. You have been given the following additional information: Fall, Uncertain Cause Neck Sprain/Strain Anemia, Type Not Specified (Adult) Concussion, No Wake-Up Cyclobenzaprine Hydrochloride Oral tablet (Electronically signed by Eze Santos Dr. 10/14/2016 21:08)
--- NOTE | 2016-10-14 21:09 | ED MAR SUMMARY ---
..... Medication Administration Record [facility] [address] [place] [address] Patient: JARROD FRENCH Visit ID: [id number] 75y, M Weight: 79.3 kg Height/Length: 71 in BMI: 24.4 ALLERGIES: No Known Drug Allergy Given 06:22 10/14/2016 Marysol Hawthorne R.N. Medication Administered: MORPHINE [IVP], Dose: 4 mg IVP over 2 minute(s), Site: #1 left forearm. Medication Ordered: Morphine IV 4 mg (HIGH ALERT MEDICATION, NOW). Given 08:19 10/14/2016 Kathy Gallegos R.N. Medication Administered: MORPHINE [IVP], Dose: 8 mg IVP over 4 minute(s), Site: #1 left forearm. Medication Ordered: Morphine IV 8 mg (HIGH ALERT MEDICATION, NOW). Start 08:31 10/14/2016 Kathy Gallegos R.N., Stop 09:30 10/14/2016 Kathy Gallegos R.N. Medication Administered: IV NS (SALINE), Dose: IV Fluids over 1 hour(s), Rate: 1000 mL/hr, Dispensed: 1000 mL bag, Site: #1 left forearm. Medication Ordered: IV NS : initial bolus 1000 mL (1000 mL/hr), then none - for X1 (NOW). Given 09:17 10/14/2016 Kathy Gallegos R.N. Medication Administered: ATIVAN [IVP] (LORAZEPAM), Dose: 1 mg IVP over 2 minute(s), Site: #1 left forearm. Medication Ordered: Ativan IV 1 mg (HIGH ALERT MEDICATION, NOW).
== END 2016-10-14 09:30 | disposition home or self-care (01) ==
LOC: ED SRH 05:47
DX: S16.1XXA Strain of muscle, fascia and tendon at neck level, initial encounter (principal); S09.90XA Unspecified injury of head, initial encounter; W01.198A Fall on same level from slipping, tripping and stumbling with subsequent striking against other object, initial encounter; Y93.89 Activity, other specified; Y92.019 Unspecified place in single-family (private) house as the place of occurrence of the external cause; Y99.8 Other external cause status; D64.9 Anemia, unspecified; E78.5 Hyperlipidemia, unspecified; E11.9 Type 2 diabetes mellitus without complications; Z79.84 Long term (current) use of oral hypoglycemic drugs
CPT/HCPCS: 90004; 90074; 90100; 90616; 94001; 94060; 95059

== ENCOUNTER 2016-10-26 21:19 | Emergency (ER) | payer OTHER ==
--- NOTE | 2016-10-27 00:01 | DIAGNOSTIC IMAGING REPORT ---
PROCEDURE: CT HEAD WITHOUT CONTRAST INDICATION: Headache and blurred vision. TECHNIQUE: Noncontrast axial images with sagittal and coronal reformations. COMPARISON: Head CT 10/26/2016. FINDINGS: Mild cortical atrophy. Normal ventricular system and brain parenchyma. No evidence of acute intracranial process. No change in the punctate subcutaneous foreign body anterior to the left maxillary sinus. Visualized mastoids and sinuses are clear. IMPRESSION: 1. No acute intracranial abnormality 2. Mild atrophy 3. Findings discussed with Dr. Pacheco at 11:58 p.m.[facility] Time
--- NOTE | 2016-10-27 00:01 | DIAGNOSTIC IMAGING REPORT ---
PROCEDURE: CT HEAD WITHOUT CONTRAST INDICATION: Headache and blurred vision. TECHNIQUE: Noncontrast axial images with sagittal and coronal reformations. COMPARISON: Head CT 10/26/2016. FINDINGS: Mild cortical atrophy. Normal ventricular system and brain parenchyma. No evidence of acute intracranial process. No change in the punctate subcutaneous foreign body anterior to the left maxillary sinus. Visualized mastoids and sinuses are clear. IMPRESSION: 1. No acute intracranial abnormality 2. Mild atrophy 3. Findings discussed with Dr. Pacheco at 11:[address] Time
--- NOTE | 2016-10-27 01:02 | ED NURSING NOTES ---
Clinical Report - Nurses [facility] [address] [place] [address] 10/26/2016 21:20 Patient: JARROD FRENCH TRIAGE Triage time 21:24. Acuity: LEVEL 3. Chief Complaint: ABDOMINAL PAIN. 21:34 10/26/16. Alert. No acute distress. KEELEY COMA SCORE: Keeley Coma Scale: 15- eyes open spontaneously (4); best verbal response- oriented x 4 (5); best motor response- obeys commands (6). --21:34 Anais Golden R.N. 21:25 10/26/16. BP: 153/85. HR: 83. RR: 16. O2 saturation: 98% on room air. Temp: 98.6 F (oral). Pain level now 6/10. --21:34 Anais Golden R.N. Weight: 79.3 kg stated. Height/Length: 70 inches Per Patient. BMI: 25.1. --21:26 Anais Golden R.N. Medications TraZODone HCl Oral. --21:31 Anais Golden R.N. AmLODIPine Besylate Oral. --21:31 Anais Golden R.N. Pravastatin Sodium Oral. --21:31 Anais Golden R.N. MetFORMIN HCl Oral. --21:32 Anais Golden R.N. Metoprolol Tartrate Oral. --21:32 Anais Golden R.N. Allergies No Known Drug Allergy. --21:32 Anais Golden R.N. Medication/allergy information source: the patient. --21:34 Anais Golden R.N. History Arrived by private vehicle. Historian: patient. Primary physician (farzad). ( pt states he has had a bowel infection "for several years" and has completed a course of antibx approx 3 weeks ago. He is unable to recall the antibx or need for antibiotics. states he had one episode of dark stool 3 days ago, but his stools are normal currently. Denies emesis but states he is "burping stomach acid" Also c/o blurry vision x3 days and a headache. pt is stating "I believe the infection is spreading from my belly to my brain. Pt states he has had a headache since his fall last week.). Onset. (3 days ago). 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 SOCIAL HX: Former smoker, end date 1966. Alcohol use; consumes two liquor daily. History of drug use. 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 ABUSE ASSESSMENT: Abuse assessment: The patient was asked "Do you feel safe in your home?". No report of abuse. FALL RISK ASSESSMENT: Fall risk assessment completed. No fall risk identified. NUTRITIONAL RISK ASSESSMENT: The nutritional risk assessment revealed no deficiencies. FUNCTIONAL ASSESSMENT: Functional assessment: no impairments noted. LEARNING NEEDS ASSESSMENT: The learning needs assessment revealed no barriers. SKIN INTEGRITY ASSESSMENT: Skin integrity risk assessment completed. No skin integrity risk identified. --21:34 Anais Golden R.N. PROBLEMS: Fall. Cervical Strain. Head Injury. Anemia. Hypertension. Hyperlipidemia. Insomnia. Hypotension. Drug Poisoning. Suicide Attempt. Diabetes Mellitus. --21:32 Anais Golden R.N. Hepatitis. --21:33 Anais Golden R.N. ADDITIONAL SURGERIES: Hernia Repair. --21:32 Anais Golden R.N. Interventions ID band on patient. To treatment room. --21:34 Anais Golden R.N. PHYSICAL ASSESSMENT To room via stretcher. GENERAL / NEURO / PSYCH: Alert. Oriented X 4. RESPIRATORY: Respirations not labored. CVS: Capillary refill less than 2 seconds. GI / : Abdomen soft. Abdominal tenderness in the lower abdomen. SKIN: Skin is warm and dry. --21:36 Anais Golden R.N. NURSING PROGRESS NOTES The plan of care for this patient has been created. Patient gowned. Head of bed elevated. Call light placed in reach. Bed placed in lowest position. Brakes of bed on. Patient ready for evaluation- chart flagged. --21:36 Anais Golden R.N. 21:53 10/26/2016 Site #1 started via IV in the right forearm with an 20g angiocath, with aseptic technique and good blood return; one attempt. Blood drawn: rainbow set. Labeled in the presence of the patient and sent to the lab. Saline lock flushed with 10 mL saline. --22:18 Anais Golden R.N. ( pt reminded about need for urine sample, pt states he is unable to go at this time.). --23:20 Leanna Guaman R.N. 23:20 10/26/16. BP: 152/89. HR: 76. RR: 15 (regular and unlabored). O2 saturation: 100% on room air. Marroquin-Waddell pain scale: 2/10. --23:21 Leanna Guaman R.N. 23:38 10/26/16. BP: 165/83. HR: 87. RR: 16. O2 saturation: 100%. Pain level now 0/10. --23:38 Anais Golden R.N. 23:44 10/26/16. ( offered urinal, pt still unable to pee. Requests sandwhich). --23:44 Anais Golden R.N. Patient ID band checked for patient name and birthdate. Clean catch urine collected with return of yellow-colored clear urine; sample sent to lab for urinalysis and culture. Specimen labeled in the presence of the patient. ( pt given sandwhich and gatorade, okayed by ). --23:54 Anais Golden R.N. Care transferred and report received. --00:45 Leanna Guaman R.N. Care transferred and report given (Leanna Sunshine, EDRN). --00:53 Anais Golden R.N. DISPOSITION / DISCHARGE 01:10/27/2016 Site #1 removed upon discharge. Catheter intact. Manual pressure and bandage applied. --01:23 Tova Kent R.N. 01:10/27/2016 IV Saline Lock Drip IV Discontinued: bag #1 completed upon discharge. Total amount infused: 0 mL. IV patency established. IV site checked: no pain, redness, or swelling. IV flushed thoroughly. --01: Tova Kent R.N. Departure time: 0113. Condition at departure: improved and stable. No learning barriers present. Discharge instructions provided and reviewed with the patient. Reviewed referral to a primary care physician for followup. Patient verbalized understanding. Written instructions provided in [place]. No medication instructions or treatment instructions. The patient was discharged home and unaccompanied at time of discharge. He left the Emergency Department ambulatory and via taxi. Driving (taxi). --: Tova Kent R.N. 01:13 10/27/16. BP: 157/88 taken on the left arm, while lying. HR: 87 (regular and normal rate). RR: 18 (regular and unlabored). O2 saturation: 100% on room air. Temp: deferred. Pain level now: 0/10. --: Tova Kent R.N. Locked/Released at 10/27/2016 1:24 by Tova Kent R.N.
--- NOTE | 2016-10-27 01:02 | ED CLINICAL REPORT ---
Clinical Report - Physicians/Mid Levels [facility] [address] [address] 10/26/2016 21:20 Patient: JARROD FRENCH Time Seen: 21:23; initial patient contact. Arrived- By ambulance. Historian- patient. HISTORY OF PRESENT ILLNESS Chief Complaint: ABDOMINAL PAIN. At its maximum, severity described as mild. When seen in the E.D., severity described as mild. Modifying factors. Not worsened by anything. Not relieved by anything. This started several years ago. It is described as "pain". No radiation. It is described as generalized in location. No nausea, loss of appetite, vomiting or diarrhea. Similar symptoms previously: Many times. Recent medical care: The patient was seen recently in the office (Per pt, he has been having this "intestinal infection" for several years, just recently got abx 3 weeks ago.). REVIEW OF SYSTEMS No constipation, difficulty with urination, pain with urination, bloody stools or fever. No chills. He has had a headache. All systems otherwise negative, except as recorded above. PAST HISTORY Fall. Cervical Strain. Head Injury. Anemia. Hypertension. Hyperlipidemia. Insomnia. Hypotension. Drug Poisoning. Suicide Attempt. Diabetes Mellitus. Hepatitis. ADDITIONAL SURGERIES: Hernia Repair. SOCIAL HISTORY Former smoker. Regular alcohol use. History of drug use Pain pills. Is a recovering addict. ADDITIONAL NOTES The nursing notes have been reviewed. PHYSICAL EXAM Vital Signs: 10/26/2016 21:25 BP: 153/85. HR: 83. RR: 16. O2 saturation: 98%. Temp: 98.6 F. Have been reviewed. Hypertensive. Heart rate normal. Respiratory rate normal. Temperature normal. Oxygen saturation normal. Appearance: Alert. Oriented X3. No acute distress. Eyes: Eyes normal inspection. ENT: Pharynx normal. CVS: Normal heart rate and rhythm. Heart sounds normal. Respiratory: No respiratory distress. Breath sounds normal. Abdomen: Soft and nontender. Bowel sounds normal. No organomegaly. No mass. Back: Normal inspection. No CVA tenderness. Skin: Skin warm and dry. Normal skin color. No rash. Extremities: No lower extremity edema. Neuro: Oriented X 3. LABS, X-RAYS, AND EKG CT Head: No acute changes. No hemorrhage, no intracranial mass and no midline shift. There is atrophy is present. Head CT performed without contrast. The study was interpreted by the radiologist and discussed with the radiologist. Laboratory Tests: UA-Culture if indicated: (MARIKA: 10/26/2016 23:49) ( [facility] 10/27/2016 00:06) Final results Test Result Flag Units (Reference) URINE COLOR YELLOW URINE APPEARANCE CLEAR URINE GLUCOSE NEGATIVE (NEGATIVE) URINE BILIRUBIN NEGATIVE (NEGATIVE) URINE KETONE 1+ (NEGATIVE) URINE SPECIFIC GRAVITY <= 1.005 L (1.010-1.030) URINE PH 6.0 (5.0-8.0) URINE PROTEIN NEGATIVE (NEGATIVE) URINE UROBILINOGEN 0.2 EU/dL (0.2-1.0) URINE NITRITE NEGATIVE (NEGATIVE) URINE BLOOD TRACE-LYSED (NEGATIVE) URINE LEUK ESTERASE NEGATIVE (NEGATIVE) URINE RBC RARE rbc/hpf (0-1) URINE WBC RARE wbc/hpf (0-1) URINE EPITHELIAL CELLS 0-1 EPI/hpf (0-5) URINE BACTERIA TRACE (<1+) (NONE SEEN) URINE COMMENT CULT NOT INDICATED URINE CULTURES ARE SET-UP BASED ON THE FOLLOWING CRITERIA:POSITIVE NITRITEPOSITIVE LEUKOCYTE ESTERASEGREATER THAN 10 WHITE BLOOD CELLSMODERATE (2+) OR GREATER BACTERIA CBC w Diff: (MARIKA: 10/26/2016 21:29) ( [facility] 10/26/2016 22:07) Final results Test Result Flag Units (Reference) WHITE BLOOD COUNT 7.9 K/uL (4.5-11.5) RED BLOOD COUNT 3.14 L M/uL (4.50-5.90) HEMOGLOBIN 10.3 L gm/dL (13.5-17.5) HEMATOCRIT 30.1 L % (41.0-53.0) MEAN CELL VOLUME 96 fL (80-100) MEAN CORPUSCULAR HGB 33 pg (26-34) MEAN CORPUSCULAR HGB CONC 34 g/dL (31-37) RED CELL DISTRIBUTION WIDTH 13.7 % (11.6-14.8) PLATELET COUNT 326 K/uL (150-400) NEUTROPHIL % 69.6 % (50-75) LYMPH % 15.8 L % (25-40) MONO % 12.5 % (3-14) EOSINOPHIL % 1.8 % (0-4) BASOPHIL % 0.3 % (0-2) CMP: (MARIKA: 10/26/2016 21:29) ( MsgRcvd 10/26/2016 22:21) Final results Test Result Flag Units (Reference) GLUCOSE 106 mg/dL (70-110) BUN 25 H mg/dL (7-18) CREATININE 1.5 H mg/dL (0.6-1.3) Estimated GFR 48.62 mL/min Estimated GFR- 58.93 mL/min Note: Persistent reduction over 3 months in eGFR<60 mL/min/1.73 m2 defines CKD. Patients with eGFR values>=60 mL/min/1.73 m2 may also have CKD if evidence ofpersistent proteinuria. Additional information may be foundat www.kidney.org. SODIUM 135 L mmol/L (136-145) POTASSIUM 4.0 mmol/L (3.5-5.1) CHLORIDE 100 mmol/L (98-107) CARBON DIOXIDE 24 mmol/L (21-32) CALCIUM 9.0 mg/dL (8.5-10.1) TOTAL PROTEIN 7.1 g/dL (6.4-8.2) ALBUMIN 3.8 g/dL (3.3-5.0) BILIRUBIN, TOTAL 0.3 mg/dL (0.0-1.0) ALKALINE PHOSPHATASE 52 U/L (46-116) AST (SGOT) 19 U/L (15-37) ALT (SGPT) 31 U/L (12-78) LIPASE 280 U/L (73-393) AMYLASE 60 U/L (25-115) . PROGRESS AND PROCEDURES Course of Care: Overall bizarre story of abd pain/infection x 3 years. No pain on abd exam and nl labs. RN had concerns for his mental status as he seemed confused. Had a nl head CT ~ 1.5 weeks ago, per pt he fell recently and hit his head. Went in room to discuss findings and pt was eating a sandwich and drinking a soda. Pt is still demanding that there must be something wrong. Disposition: Discharged home in good and improved condition. Condition: good. CLINICAL IMPRESSION Chronic generalized abdominal pain of unknown cause. INSTRUCTIONS Drink plenty of fluids. Your Current Medications: CONTINUE TAKING THE FOLLOWING MEDICATIONS: AmLODIPine Besylate Oral. MetFORMIN HCl Oral. Metoprolol Tartrate Oral. Pravastatin Sodium Oral. TraZODone HCl Oral. Follow-up: Follow up with your doctor in about two days. Call for an appointment. Blood pressure screening was not performed during this visit because the patient has an active diagnosis of hypertension. (Electronically signed by Alexy Pacheco Dr. 10/27/2016 9:44)
--- NOTE | 2016-10-27 01:02 | ED ORDER SUMMARY ---
..... Patient: JARROD FRENCH OrderSheet [facility] VisitID: [id number] [place] [address] 75y, M Registration Date/Time: 10/26/2016 ORDER SHEET Weight: 79.3 kg (stated) Allergies: No Known Drug Allergy GENERAL ORDERS: CBC w Diff Urgent (21:57 10/26/2016 Shaq Estrada) (Ack 21:59 Gloria) (22:18 KWilliams R.N.) CMP Urgent (21:57 10/26/2016 Shaq Estrada) (Ack 21:59 Gloria) (22:18 Abelams R.N.) UA-Culture if indicated Urgent (21:57 10/26/2016 Shaq Estrada) (Ack 22:01 Gloria) (23:51 Abelams R.N.) Amylase Urgent (21:57 10/26/2016 Shaq Estrada) (Ack 22:01 Gloria) (22:18 Abelams R.N.) Lipase Urgent (21:57 10/26/2016 Shaq Estrada) (Ack 22:01 Gloria) (22:18 Abelams R.N.) CT Head wo Cont Urgent (23:31 10/26/2016 Shaq Estrada) (Ack 23:33 Gloria) (23:51 Shi R.N.) MEDICATION ORDERS: IV FLUIDS: IV Saline Lock (21:57 10/26/2016 Shaq Estrada) (22:18 KWsaumyaams R.N.) ORDER SHEET NOTES: [Electronically signed by Tova Kent R.N. (:10/27/2016)] [Electronically signed by Alexy Pacheco Dr. (09:44 10/27/2016)] [Electronically locked/signed by Tova Kent R.N. (10/27/2016)]
--- NOTE | 2016-10-27 01:02 | ED ORDER SUMMARY ---
..... Patient: JARROD FRENCH OrderSheet [facility] VisitID: [id number] [place] [address] 75y, M Registration Date/Time: 10/26/2016 ORDER SHEET Weight: 79.3 kg (stated) Allergies: No Known Drug Allergy GENERAL ORDERS: CBC w Diff Urgent (21:57 10/26/2016 Shaq Estrada) (Ack 21:59 Gloria) (22:18 KWilliams R.N.) CMP Urgent (21:57 10/26/2016 Shaq Estrada) (Ack 21:59 Gloria) (22:18 Abelams R.N.) UA-Culture if indicated Urgent (21:57 10/26/2016 Shaq Estrada) (Ack 22:01 Gloria) (23:51 Abelams R.N.) Amylase Urgent (21:57 10/26/2016 Shaq Estrada) (Ack 22:01 Gloria) (22:18 Abelams R.N.) Lipase Urgent (21:57 10/26/2016 Shaq Estrada) (Ack 22:01 Gloria) (22:18 Abelams R.N.) CT Head wo Cont Urgent (23:31 10/26/2016 Shaq Estrada) (Ack 23:33 Gloria) (23:51 Shi R.N.) MEDICATION ORDERS: IV FLUIDS: IV Saline Lock (21:57 10/26/2016 Shaq Estrada) (22:18 KWsaumyaams R.N.) ORDER SHEET NOTES: [Electronically signed by Tova Kent R.N. (:10/27/2016)] [Electronically signed by Alexy Pacheco Dr. (09:44 10/27/2016)] [Electronically locked/signed by Tova Kent R.N. (10/27/2016)]
--- NOTE | 2016-10-27 09:44 | ED MED RECONCILIATION SUMMARY ---
Patient: JARROD FRENCH Medication Reconciliation Report [facility] VisitID: [id number] [address] [place] [address] 75y, M Registration Date/Time: 10/26/2016 Weight: 79.3 kg Height/Length: 70 in. BMI: 25.1 ALLERGIES: No Known Drug Allergy The patient's Home Medications are listed below: CONTINUE TAKING THE FOLLOWING MEDICATIONS: AmLODIPine Besylate Oral MetFORMIN HCl Oral Metoprolol Tartrate Oral Pravastatin Sodium Oral TraZODone HCl Oral The source(s) of the original Home Medication information: patient The following Medications were given to the patient in the Emergency Department: None. The following Medications were prescribed to the patient: None.
--- NOTE | 2016-10-27 09:44 | ED MAR SUMMARY ---
..... Medication Administration Record [facility] [address] [place], [place] [id number] Patient: JARROD FRENCH Visit ID: [id number] 75y, M Weight: 79.3 kg Height/Length: 70 in BMI: 25.1 ALLERGIES: No Known Drug Allergy
--- NOTE | 2016-10-27 09:44 | ED DISCHARGE INSTRUCTIONS ---
Patient: JARROD FRENCH General Instructions [facility] VisitID: [id number] [place] [address] 75y, M Registration Date/Time: 10/26/2016 Chronic generalized abdominal pain of unknown cause. INSTRUCTIONS Drink plenty of fluids. Your Current Medications: CONTINUE TAKING THE FOLLOWING MEDICATIONS: AmLODIPine Besylate Oral. MetFORMIN HCl Oral. Metoprolol Tartrate Oral. Pravastatin Sodium Oral. TraZODone HCl Oral. Follow-up: Follow up with your doctor in about two days. Call for an appointment. Blood pressure screening was not performed during this visit because the patient has an active diagnosis of hypertension. ADDITIONAL INFORMATION Abdominal Pain,Uncertain Cause [Male] Based on your visit today, the exact cause of your abdominalpain is not clear. Your exam and tests do not indicate a dangerous cause at this time. However, the signs of a serious problem may take more time to appear. Although your evaluation was reassuring today, sometimes early in the course of many conditions, exam and lab tests can appear normal. Therefore, it is important for you to watch for any new symptoms or worsening of your condition. Causes It may not be obvious what caused your symptoms. Pay attention to things that do seem to make your symptoms worse or better and discuss this with your doctor when you follow up. Diagnosis The evaluation of abdominal pain in the emergency department may onlyrequire an exam by the doctor or it may include blood, urine or imaging studies, depending on many factors. Sometimes exams and tests can identify a cause but in many cases, a clear cause is not found. Further testing at follow up visits may help to suggest a clear diagnosis. Home Care Rest as much as possible until your next exam. Try to avoid any medications (unless otherwise directed by your doctor), foods, activities, or other factors that you may have contributed to your symptoms. Try to eat foods that you know that you have tolerated well in the past. Certain diets may be recommended for some conditions that cause abdominal pain. However, since the cause of your symptoms may not be clear, discuss your diet more with your primary care provider or specialist for further recommendations. Eating several small meals per day as opposed to 2 or 3 larger meals may help. Monitor closely for anything that may make your symptoms worse or better. Pay close attention to symptoms below that may indicate worsening of your condition. Follow Up and Precautions See your doctoras instructed or sooneror if your symptoms are not improving.In some cases, you may need more testing. When to Seek Medical Attention Contact your doctor or see medical attention ifany of the following occur: Pain is becoming worse You are unable to take your medications due to excessive vomiting Swelling of the abdomen Fever of 100.4F (38C) or higher, or as directed by your health care provider Blood in vomit or bowel movements (dark red or black color) Jaundice (yellow color of eyes and skin) New onset of weakness, dizziness or fainting New onset of chest, arm, back, neck or jaw pain You have been given the following additional information: Abdominal Pain, Unknown Cause, (Male) (Electronically signed by Alexy Pacheco Dr. 10/27/2016 9:44)
--- NOTE | 2016-10-27 09:44 | ED MAR SUMMARY ---
..... Medication Administration Record [facility] [address] [place], [place] [id number] Patient: JARROD FRENCH Visit ID: [id number] 75y, M Weight: 79.3 kg Height/Length: 70 in BMI: 25.1 ALLERGIES: No Known Drug Allergy
--- NOTE | 2016-10-27 09:44 | ED MED RECONCILIATION SUMMARY ---
Patient: JARROD FRENCH Medication Reconciliation Report [facility] VisitID: [id number] [address] [place] [address] 75y, M Registration Date/Time: 10/26/2016 Weight: 79.3 kg Height/Length: 70 in. BMI: 25.1 ALLERGIES: No Known Drug Allergy The patient's Home Medications are listed below: CONTINUE TAKING THE FOLLOWING MEDICATIONS: AmLODIPine Besylate Oral MetFORMIN HCl Oral Metoprolol Tartrate Oral Pravastatin Sodium Oral TraZODone HCl Oral The source(s) of the original Home Medication information: patient The following Medications were given to the patient in the Emergency Department: None. The following Medications were prescribed to the patient: None.
== END 2016-10-27 01:18 | disposition home or self-care (01) ==
LOC: ED SRH 21:19
DX: R10.84 Generalized abdominal pain (principal); G89.29 Other chronic pain; I10 Essential (primary) hypertension; E78.5 Hyperlipidemia, unspecified; E11.9 Type 2 diabetes mellitus without complications; Z79.84 Long term (current) use of oral hypoglycemic drugs; Z79.899 Other long term (current) drug therapy; Z87.891 Personal history of nicotine dependence
CPT/HCPCS: 90004; 90100; 92235; 92530; 95059